=== PATIENT | female | born 1990 | race Caucasian/White ===

== ENCOUNTER → 2016-12-31 | Outpatient (CLI) | payer MEDICAID | LOC: FIMAGING 10:10 | PROVIDERS: ATTEND Obstetrics & Gynecology | DX: O36.5920 Maternal care for other known or suspected poor fetal growth, second trimester, not applicable or unspecified (principal); Z3A.23 23 weeks gestation of pregnancy ==

== ENCOUNTER → 2017-01-06 | Outpatient (CLI) | payer MEDICAID | LOC: FIMAGING 09:45 | PROVIDERS: ATTEND Obstetrics & Gynecology | DX: O36.5920 Maternal care for other known or suspected poor fetal growth, second trimester, not applicable or unspecified (principal); Z3A.24 24 weeks gestation of pregnancy ==

== ENCOUNTER → 2017-01-13 | Outpatient (CLI) | payer MEDICAID | LOC: FIMAGING 13:59 | PROVIDERS: ATTEND Obstetrics & Gynecology | DX: O36.5920 Maternal care for other known or suspected poor fetal growth, second trimester, not applicable or unspecified (principal); Z3A.23 23 weeks gestation of pregnancy ==

== ENCOUNTER → 2017-01-20 | Outpatient (CLI) | payer MEDICAID | LOC: FIMAGING 13:51 | PROVIDERS: ATTEND Obstetrics & Gynecology | DX: O36.5920 Maternal care for other known or suspected poor fetal growth, second trimester, not applicable or unspecified (principal); Z3A.26 26 weeks gestation of pregnancy ==

== ENCOUNTER → 2017-01-27 | Outpatient (CLI) | payer MEDICAID | LOC: FIMAGING 13:51 | PROVIDERS: ATTEND Obstetrics & Gynecology | DX: O36.5930 Maternal care for other known or suspected poor fetal growth, third trimester, not applicable or unspecified (principal); Z3A.27 27 weeks gestation of pregnancy ==

== ENCOUNTER → 2017-02-03 | Outpatient (CLI) | payer MEDICAID | LOC: FIMAGING 13:24 | PROVIDERS: ATTEND Obstetrics & Gynecology | DX: O36.5930 Maternal care for other known or suspected poor fetal growth, third trimester, not applicable or unspecified (principal); Z3A.28 28 weeks gestation of pregnancy ==

== ENCOUNTER → 2017-02-10 | Outpatient (CLI) | payer MEDICAID | LOC: FIMAGING 14:02 | PROVIDERS: ATTEND Obstetrics & Gynecology | DX: Z34.83 Encounter for supervision of other normal pregnancy, third trimester (principal); Z3A.29 29 weeks gestation of pregnancy ==

== ENCOUNTER → 2017-02-17 | Outpatient (CLI) | payer MEDICAID | LOC: FIMAGING 09:09 | PROVIDERS: ATTEND Obstetrics & Gynecology | DX: O36.5930 Maternal care for other known or suspected poor fetal growth, third trimester, not applicable or unspecified (principal); Z3A.29 29 weeks gestation of pregnancy ==

== ENCOUNTER → 2017-02-24 | Outpatient (CLI) | payer MEDICAID | LOC: FIMAGING 11:14 | PROVIDERS: ATTEND Obstetrics & Gynecology | DX: O36.5930 Maternal care for other known or suspected poor fetal growth, third trimester, not applicable or unspecified (principal); Z3A.31 31 weeks gestation of pregnancy ==

== ENCOUNTER → 2017-03-03 | Outpatient (CLI) | payer MEDICAID | LOC: FIMAGING 09:20 | PROVIDERS: ATTEND Obstetrics & Gynecology | DX: O36.5930 Maternal care for other known or suspected poor fetal growth, third trimester, not applicable or unspecified (principal); Z3A.32 32 weeks gestation of pregnancy ==

== ENCOUNTER → 2017-03-10 | Outpatient (CLI) | payer MEDICAID | LOC: FIMAGING 09:18 | PROVIDERS: ATTEND Obstetrics & Gynecology | DX: O35.8XX0 Maternal care for other (suspected) fetal abnormality and damage, not applicable or unspecified (principal); Z3A.33 33 weeks gestation of pregnancy ==

== ENCOUNTER → 2017-04-01 | Outpatient (CLI) | payer MEDICAID | LOC: FIMAGING 14:12 | PROVIDERS: ATTEND Obstetrics & Gynecology | DX: O36.5930 Maternal care for other known or suspected poor fetal growth, third trimester, not applicable or unspecified (principal); Z3A.36 36 weeks gestation of pregnancy ==

== ENCOUNTER 2017-04-18 06:00 | Inpatient (IN) | payer MEDICAID ==
[2017-04-18] MEDS ORDERED: OLIVE OIL 118 ML BTL MISC PRN (08:45)
[2017-04-18] MEDS ORDERED: TERBUTALINE SULFATE 1 MG/ML VIAL IV PRN (08:45)
[2017-04-18] MEDS ORDERED: OXYTOCIN 20 UNIT in LR 1,000 ML IV PRN (08:45)
[2017-04-18] MEDS ORDERED: EPSOM SALT 454 GM TP PRN (08:45)
[2017-04-18] MEDS ORDERED: LR 1,000 ML IV PRN (08:45)
[2017-04-18] MEDS ORDERED: AMMONIA AROMATIC 1 EACH AMP IH PRN (08:45)
[2017-04-18] MEDS ORDERED: LR 500 ML IV PRN (09:13)
[2017-04-18] MEDS ORDERED: OXYTOCIN 30 UNIT in NS 500 ML IV SCH (09:15)
[2017-04-18 09:27] LABS: PLATELET COUNT 251 10^3/uL (150-400)
--- NOTE | 2017-04-18 10:03 | PREANESOB ---
Obstetric Pre-Anesthesia Info - General Info Proposed Procedure: Labor Epidural : 2 Para: 1 ALESSANDRO: 04/23/17 Gestational Age: 39 week(s) and 2 day(s) - Info Status: Full Term, Guerrero Monitors: External FHR Pattern: Reassuring - Labor Status Cervical Dilation per last OB SVE: 3 Station per last OB SVE: -1 Pitocin: In Use PIH: No Magnesium Sulfate in Use: No Indications for Labor Analgesia: Induction of Labor, Pain Control Labor Epidural: Proposed Anesthesia Allergies/Adverse Reactions: Allergy/AdvReac Type Severity Reaction Status Date / Time No Known Allergies Allergy Verified 11/29/15 06:16 Home Medications: Medication Instructions Recorded Vit27&Calcium/Iron/FA 1 each PO 06/17/15 [] Docusate Sodium [Colace 100 MG (*)] 100 mg PO BID PRN #0 cap 12/01/15 Ibuprofen [Motrin (*)] 600 mg PO Q6 PRN #0 tab 12/01/15 Visit Medications: Generic Name Dose Route Start Last Admin Trade Name Freq PRN Reason Stop Dose Admin Ammonia (Aromatic Spirit) 1 each 04/18/17 08:45 Ammonia Aromatic IH 04/28/17 08:44 ONCE PRN Fainting Lactated Ringer's 1,000 mls @ 0 mls/hr 04/18/17 08:45 04/18/17 09:42 Lr IV 04/19/17 08:44 1,000 mls PRN PRN Administration SEE PROTOCOL CONDITIONS Protocol Per Protocol Oxytocin 20 unit/ Lactated 1,002 mls @ 150 mls/hr 04/18/17 08:45 Ringer's IV PRN PRN Post- bleeding Lactated Ringer's 500 mls @ 500 mls/hr 04/18/17 09:13 Lr IV 04/19/17 09:13 PRN PRN Maternal Hypotension Oxytocin 30 unit/ Sodium 503 mls @ 0 mls/hr 04/18/17 09:15 04/18/17 09:41 Chloride IV 10/15/17 09:14 503 mls CONT COLLEEN Administration Protocol Per Protocol Ibuprofen 600 mg 04/18/17 08:45 Motrin PO 10/15/17 08:44 Q6HRS PRN post , inflammation Magnesium Sulfate 454 gm 04/18/17 08:45 Epsom Salt TP 10/15/17 08:44 Q1H PRN perineal discomfort Glennie Oil 118 ml 04/18/17 08:45 Sweet Oil MISC 10/15/17 08:44 ONCE PRN perineal massage Terbutaline Sulfate 0.25 mg 04/18/17 08:45 Brethine IV 10/15/17 08:44 ONCE PRN Tachysystole - Anesthesia History Response to Local Anesthetics: Normal Anesthesia & Operative History: No Prior Problems Family Anesthesia History: Negative - Social History Substance Use/Abuse: Denies - Vital Signs Height/Weight (Nursing): Height 167.64 cm Weight 75.75 kg - Focused Exam Neck exam: FROM Mallampati Score: Class 2 Mouth exam: normal dental/mouth exam Pulmonary: no respiratory distress Cardiovascular: regular rate and rhythym Labs: 04/18/17 09:10 - Plan Anesthetic Plan: Labor Epidural Consent Signed and on Chart: Yes Patient/Guardian Understands and Agrees to Plan: Yes General Comments: Patient has history of anxiety disorder
--- NOTE | 2017-04-18 10:07 | GHP ---
[f rep st] HISTORY AND PHYSICAL DATE OF ADMISSION: 04/18/2017 HISTORY: Upon admission, the patient is a 26-year-old, G2, P1, at 39 weeks' gestation, with an estim ated due date of 04/23/2017, who presents for elective induction. The patient had a Rajput catheter p laced on April 17, at which time she was 1 cm dilated. The patient reports a lot of cramping in e evening and she lost her mucus plug with scant bleeding. The Rajput catheter did fall out approxima tely 10 p.m. The patient afterwards was able to get rest through the night and is not having any con tractions or bleeding this morning. Patient reports good movement. She denies any headache. Patient understands the plan for induction with Pitocin and likely rupture of membranes, and patient will get an epidural when ready. care: The patient has been followed with [facility] since 15 weeks' . e patient's has been followed very closely due to concerns for IUGR with elevated Dopplers noted on ultrasounds. This did not help the patient's underlying issues with anxiety, and she has ba ttled that through the . In the past, she has self-medicated with marijuana, however, was n ot doing it in the . The patient's was unintended with a short interval fro m her last , but desired. The patient had severe anxiety bout at 17 weeks and felt very par alyzed by her thoughts of hurting herself. The patient also battles agoraphobia. The patient was in itiated on Zoloft and felt that really helped manage her anxiety. She did engage also [facility]. At 20 weeks was the 1st ultrasound that revealed the IUGR wit h elevated Dopplers. The estimated weight was the 2nd percentile and the Dopplers were greater than the 95th percentile. Patient was referred and evaluated by the maternal specialist. She had a n amniocentesis performed that revealed normal findings and there was no evidence of CMV or toxo. Th ereafter, she had very close followup with the [facility], with continued elevated Dopplers, but gradual imp rovement of the estimated weight. Anxiety also increased approximately 30 weeks and the patient's Zo loft level was increased to 75 mg a day which she felt did help. Patient had been planning throughou t the of delivering early due to the continued IUGR and elevated Dopplers. However, at 34 weeks, there was an ultrasound that showed an estimated weight of the 30th percentile. This was the first that had been in the normal range. The patient was having twice weekly NSTs for increased feta l surveillance. She had another ultrasound done at 37 weeks revealing estimated weight of the 42nd percentile with greater than 6 pounds. It was felt that the could continue until spon taneous labor, but the patient does opt for elective induction to be free of the stress. T he baby had been sitting breech on earlier ultrasounds, but at 37 weeks had spontaneously verted to v ertex. Fluid levels were normal. LABS: Maternal blood type A positive with negative antibody screen. RPR nonreactive. Rube lla immune. Hepatitis B surface antigen negative. HIV negative. The above testing noted due to the IUGR. In addition to the more thorough testing, the verify was negative in the MSAFP was negative. Initial hematocrit was 36% and this decreased to 32% at 34 weeks. The patient has been advised to b e on iron. The patient was found to be a carrier of cystic fibrosis in 2015 with her previous pregna ncy, and the father of the baby was evaluated and was negative. The patient has the same partner wit h this . TSH checked, was normal in . Urinalysis and culture were negative. Pap smear normal. Gonorrhea and chlamydia were negative. One hour glucose test was normal, and GBS test ing was negative. PAST MEDICAL HISTORY: Patient with anxiety disorder, as noted above, with panic attacks, for which s he used to medicate with Xanax and marijuana. Also a history of agoraphobia. History of abnormal Pa p smears with a past Pap smear of LGSIL, and the patient did not follow up for the colposcopy indicat ed at that time. Again, current Pap smear is normal. PAST SURGICAL HISTORY: Negative. PAST OBSTETRIC HISTORY: In November 2015, a viable male at 8 pounds 1 ounce at 40 weeks' gestation wit h a vaginal delivery under an epidural, after an induction for postdates. ALLERGIES: Patient has no known drug allergies. CURRENT MEDICATIONS: vitamins, Zoloft 75 mg daily, iron. SOCIAL HISTORY: The patient works as a residential case manager. She has had a regular partner for years and he has fathered her 2 pregnancies. He is supportive and with the patient today. The patient den ies drug use other than marijuana use for panic attacks in the past. Patient denies alcohol in the p regnancy and is a nonsmoker. PHYSICAL EXAM: GENERAL: Upon admission, the patient is a well-developed, well-nourished white femal e in no physical distress. She is anxious about the induction and . VITAL SIGNS: Patient is a febrile. Initial blood pressure was 118/87 with a followup 110/70. See other vital signs with nursi ng documentation. heart tones reveal a reactive pattern initially with good variability and ac celerations with baseline in the 140s. This is a category 2 tracing with occasional small variables with quick recovery. Contractions, no regular contraction pattern noted. VAGINAL: The cervix is 3 cm dilated, 80% effaced, at -1 station, vertex. EXTREMITIES: Nontender, with no edema. ASSESSMENT: Intrauterine at 39+ weeks' gestation for elective induction. Will initiate Pi tocin and AROM in a couple hours. Patient will get an epidural when ready. History of anxiety and a goraphobia with symptoms controlled on Zoloft. Cystic fibrosis carrier, and the father of the baby i s negative. Mild anemia in . History throughout the of IUGR with elevated Dopple rs. However, improvement in the last month with recent estimated weight at the 43rd percentile and n ormal fluid. PLAN: We will do the Pitocin and epidural when ready. /[id number]/MODL
[2017-04-18] MEDS ORDERED: PHENYLEPHRINE HCL 100 MCG/ML SYR ONE (13:34)
[2017-04-18] MEDS ORDERED: BUPIVACAINE 0.25% 30 ML SDV ONE (13:34)
[2017-04-18] MEDS ORDERED: fentaNYL 2MCG/ML/BUP 0.1% RTU 100 ML BAG EP ONE (13:35)
[2017-04-18] MEDS ORDERED: PHENYLEPHRINE HCL 100 MCG/ML SYR IVP PRN (14:33)
[2017-04-18] MEDS ORDERED: ONDANSETRON 4 MG/2 ML VIAL IVP PRN (14:33)
[2017-04-18] MEDS ORDERED: NALOXONE HCL 0.4 MG/ML INJ IVP PRN (14:33)
--- NOTE | 2017-04-18 14:43 | POSTANESTH ---
Post Anesthetic Evaluation Cardiovascular Status: Normal, Stable, Similar to Pre-Op Cond Respiratory Status: Normal, Stable, Similar to Pre-op Cond. Level of Consciousness/Mental Status: Can Participate in Eval Pain Control: Adequate, Prn Tx Ordered Nausea/Vomiting Control: Adequate, Prn Tx Ordered Complications Possibly Related to Anesthesia: None Noted (Patient tolerated placement of continuous labor epidural very well.)
[2017-04-18] MEDS ORDERED: fentaNYL 2MCG/ML/BUP 0.1% RTU 100 ML EP SCH (15:00)
[2017-04-18] MEDS ORDERED: LR 500 ML IV SCH (15:00)
--- NOTE | 2017-04-18 15:16 | OBPROG ---
Labor Progress Note Assessment/Plan: Assessment: IUP at 39 wks elective induction on pitocin AROM, clear, GBS - now comf with KEVEN Plan: cont pitocin 04/18/17 15:12 Subjective/Intrapartum Course: 04/18/17 15:14 Pt feeling better with KEVEN. ctxns were about 6/10 prior to KEVEN. ok with AROM Objective: 04/18/17 09:10 Patient ABO/Rh A POSITIVE 04/18/17 09:10 - SVE Dilation (cm): 4 Effacement (%): 80 Station: -2 Membranes: AROM Amniotic Fluid Color: Clear - Contraction Pattern Assessment Current Contraction Pattern: Irregular (on 16 mu/min of pitocin - were reg prior to KEVEN) - FHR Assessment Guerrero FHR (bpm): 140 FHR Pattern Variability: Moderate FHR Category: 1 - Procedures Non-surgical Procedures: Amniotomy - AP Antepartum Course: 04/18/17 15:17 IUGR with elevated dopplers through most of preg - improved at 34 wks and 37wk u /s showed 42%EFW and nl fluid. Anxiety/panic improved with Zoloft and increased up to 75 mg Oxytocin Orders Assessment - Pre-Induction/Augmentation Assessment Gestational Age: 39 week(s) and 2 day(s) ICD10 Worksheet Patient Problems: Problems Problem Status Onset Encounter for elective induction of labor Acute - ICD10 Problem Qualifiers (1) Encounter for elective induction of labor
[2017-04-18] MEDS ORDERED: TERBUTALINE SULFATE 1 MG/ML VIAL ONE (18:21)
[2017-04-18] MEDS ORDERED: OLIVE OIL 118 ML BTL ONE (18:21)
[2017-04-18] MEDS ORDERED: OXYTOCIN 10 UNIT/ML VIAL ONE (18:21)
[2017-04-18] MEDS ORDERED: LIDOCAINE 1% 300 MG/30 ML SDV ONE (18:21)
[2017-04-18] MEDS ORDERED: AMMONIA AROMATIC 1 EACH AMP IH ONE (18:21)
[2017-04-18] MEDS ORDERED: MISOPROSTOL 200 MCG TAB ONE (18:22)
[2017-04-18] MEDS ORDERED: LIDO/EPI 2% **for epidural** 20 ML SDV ONE (20:02)
[2017-04-18] MEDS: IBUPROFEN 600 MG TAB PO PRN (21:21)
[2017-04-18] MEDS ORDERED: DOCUSATE SODIUM 100 MG CAP PO PRN (21:25)
[2017-04-18] MEDS ORDERED: HYDROCODONE/APAP 5/325 TAB PO PRN (21:25)
[2017-04-18] MEDS ORDERED: SERTRALINE HCL 50 MG TAB PO SCH (21:30)
--- NOTE | 2017-04-18 21:33 | OBDEL ---
Info Type: Vaginal Presentation at Delivery: Vertex L&D Analgesia/Anesthesia Type: Epidural GBS+: No Intrapartum Medications: Generic Name Dose Route Start Last Admin Trade Name Freq PRN Reason Stop Dose Admin Lactated Ringer's 1,000 mls @ 0 mls/hr 04/18/17 08:45 04/18/17 09:42 Lr IV 04/19/17 08:44 1,000 mls PRN PRN Administration SEE PROTOCOL CONDITIONS Protocol Per Protocol Oxytocin 30 unit/ Sodium 503 mls @ 0 mls/hr 04/18/17 09:15 04/18/17 09:41 Chloride IV 10/15/17 09:14 503 mls CONT COLLEEN Administration Protocol Per Protocol Fentanyl/Bupivacaine HCl 100 mls @ 0 mls/hr 04/18/17 15:00 04/18/17 19:13 Fentanyl/Bupivacaine/Ns 2 Mcg/Ml 0.1% (Premix EP 04/28/17 14:59 100 mls CONT COLLEEN Administration Protocol As Directed Ibuprofen 600 mg 04/18/17 08:45 04/18/17 21:21 Motrin PO 10/15/17 08:44 600 mg Q6HRS PRN Administration post , inflammation Ondansetron HCl 4 mg 04/18/17 14:33 04/18/17 14:58 Zofran IVP 04/19/17 14:32 4 mg Q4HRS PRN Administration Nausea/Vomiting, Can't Take PO - Infant Care Provider Sub Acute Care Nurse/METAL MOLDER: Bria Smith - Hospital Course Intrapartum: 04/18/17 15:14 Pt feeling better with KEVEN. ctxns were about 6/10 prior to KEVEN. ok with AROM Indications for Delivery: Elective Vaginal Delivery - Delivery Provider Delivery Physician/CNM: Sarah Tavarez - Labor and Delivery Onset of Contractions Date: 04/18/17 Onset of Contractions Time: 12:00 Onset of Contractions Type: Induced Rupture of Membranes Date: 04/18/17 Rupture of Membranes Time: 15:06 Rupture of Membranes Type: Artificial Amniotic Fluid Color: Clear Dilation Complete Date: 04/18/17 Dilation Complete Time: 20:25 Placenta Delivery Date: 04/18/17 Placenta Delivery Time: 20:59 Total Hours of Labor: 8 Non-surgical Procedures: Amniotomy Laceration: Other (Specify) (none) Vaginal Sponge Count Correct: Yes Vaginal Needle Count Correct: Yes Vaginal Sweep Performed: Yes EBL: 300 Delivery Events: Other (Specify) (body cord x3 tightly wrapped on midbelly, also leg cord) - Medications Labor Augmentation/Induction Methods Used: Pitocin Labor Augmentation/Induction Indication: Elective (much of preg with IUGR on u/ s with elev dopplers and recent u/s better - pt with anxiety through preg) Data ALESSANDRO: 04/23/17 Gestational Age: 39 week(s) and 2 day(s) Guerrero Delivery Date: 04/18/17 Delivery Time: 20:50 Sex of : Female Score (1 Min): 7 Score (5 Min): 8 ICD10 Worksheet Patient Problems: Problems Problem Status Onset (spontaneous vaginal delivery) Acute - ICD10 Problem Qualifiers (1) Encounter for elective induction of labor
[2017-04-19] MEDS: IBUPROFEN 600 MG TAB PO PRN ×4 (03:17→21:04)
--- NOTE | 2017-04-19 09:55 | OBPP ---
Progress Note Assessment/Plan: Assessment: [id number] s/p anemia anxiety/agoraphobia Plan: routine PP care cont cont PO iron cont zoloft ambulate/hydrate plan to d/c home tomorrow 04/19/17 09:53 04/19/17 09:55 Subjective/ Course: 04/19/17 09:54 Pt doing well, she is without difficulty. She denies any pain or heavy bleeding. FOB @ BS, supportive. Objective: 04/19/17 06:15 Patient ABO/Rh A POSITIVE 04/18/17 09:10 Temp Pulse Resp BP Pulse Ox 36.6 C 58 L 17 113/71 95 04/19/17 08:00 04/19/17 08:00 04/19/17 08:00 04/19/17 08:00 04/19/17 08:00 Uterine Position/Fundal Height: Umbilicus -1, Midline Uterine Tone: Firm Physical Exam - Physical Exam Neck: supple Respiratory: lungs clear, normal breath sounds Cardiac/Chest: regular rate, rhythm Abdomen: non-tender, soft Extremities: non-tender, normal inspection Skin: normal color, warm/dry Neuro/Psych: alert, normal mood/affect, oriented x 3
[2017-04-19] MEDS: SERTRALINE HCL 50 MG TAB PO SCH (22:50)
[2017-04-20] MEDS: IBUPROFEN 600 MG TAB PO PRN ×3 (06:06→21:00)
[2017-04-20] MEDS ORDERED: FERROUS SULFATE 325 MG TAB PO SCH (09:00)
[2017-04-20 09:38] VITALS: BP 115/74; PULSE 55; RESP 17; TEMP 97.9; O2SAT 98
--- NOTE | 2017-04-20 10:09 | OBPP ---
Progress Note Assessment/Plan: Assessment: PPD 2 s/p with triple tight body cord Plan: routine care, baby to have echo prior to discharge due to discrepant pulse ox levels in arms and legs 04/18/17 15:12 04/20/17 10:05 Subjective/ Course: 04/19/17 09:54 Pt doing well, she is without difficulty. She denies any pain or heavy bleeding. FOB @ BS, supportive. 04/20/17 10:09 Pt doing well - BF going well - baby latching well and milk coming in. cramps tolerable. urinating fine. bld is light. Will have baby get echo prior to d/ c. Disc seeing therapist at office for f/u - cont on Zoloft Objective: 04/19/17 06:15 Patient ABO/Rh A POSITIVE 04/18/17 09:10 Temp Pulse Resp BP Pulse Ox 36.6 C 55 L 17 115/74 98 04/20/17 09:37 04/20/17 09:37 04/20/17 09:37 04/20/17 09:37 04/20/17 09:37 Uterine Position/Fundal Height: Umbilicus -2 Uterine Tone: Firm Physical Exam - Physical Exam Abdomen: non-tender, soft, other (FF at umb -2) Extremities: non-tender, pedal edema (minimal) Skin: normal color, warm/dry Neuro/Psych: alert, normal mood/affect
[2017-04-20] MEDS: SERTRALINE HCL 50 MG TAB PO SCH (21:01)
== END 2017-04-20 21:44 | disposition home or self-care (01) | DRG 775 ==
LOC: FLD 08:34 → FOB 23:20
PROVIDERS: ADMIT Obstetrics & Gynecology; ATTEND Obstetrics & Gynecology
PROC: 3E033VJ Introduction of Other Hormone into Peripheral Vein, Percutaneous Approach (ICD-10-PCS; principal; 2017-04-18)
PROC: 10E0XZZ Delivery of Products of Conception, External Approach (ICD-10-PCS; principal; 2017-04-18)
PROC: 10907ZC Drainage of Amniotic Fluid, Therapeutic from Products of Conception, Via Natural or Artificial Opening (ICD-10-PCS; principal; 2017-04-18)
DX: O36.5930 Maternal care for other known or suspected poor fetal growth, third trimester, not applicable or unspecified (principal); Z37.0 Single live birth; O99.344 Other mental disorders complicating childbirth; Z3A.39 39 weeks gestation of pregnancy; F41.9 Anxiety disorder, unspecified; F40.00 Agoraphobia, unspecified; O99.02 Anemia complicating childbirth; D64.9 Anemia, unspecified; Z14.1 Cystic fibrosis carrier
CPT/HCPCS: J2370; J2405; J3105